=== PATIENT | female | born 1965 | race Caucasian/White ===

== ENCOUNTER 2017-07-21 18:15 | Emergency (ER) | payer SELFPAY ==
[~2017-07-21] VITALS: Ht 154.9 cm; Wt 47.7 kg
[2017-07-21 18:18] VITALS: BP 138/72; PULSE 129; RESP 18; TEMP 98.5; O2SAT 99
--- NOTE | 2017-07-21 19:07 | RADRPT ---
EXAM DATE/TIME: 07/21/2017 18:33 [place] COMPARISON: No previous studies available for comparison. INDICATIONS : Pain, swelling, redness and abrasion left great toe. Kicked a concrete sidewalk. MEDICAL HISTORY : None. SURGICAL HISTORY : None. ENCOUNTER: Initial ACUITY: 1 week PAIN SCORE: 9/10 LOCATION: Left Great toe FINDINGS: Examination of the first digit of the left foot demonstrates no evidence of fracture or dislocation. No radiopaque foreign bodies are seen. The soft tissues are intact. CONCLUSION: 1. No acute bony abnormality. Mild hallux valgus. Kulwinder Kennedy MD on July 21, 2017 at 19:02 Board Certified Radiologist. This report was verified electronically.
[2017-07-21] MEDS ORDERED: BACT800T5 PO (23:23)
[2017-07-21] MEDS ORDERED: IBUP-232 PO (23:23)
--- NOTE | 2017-07-21 23:23 | PD ---
HPI Chief Complaint: Skin Problem Time Seen by Provider: 23:20 Travel History International Travel<30 days: No Contact w/Intl Traveler<30days: No Traveled to known affect area: No History of Present Illness HPI 52-year-old female patient presents to the ER today, states that she stubbed her toe on the stairs several days ago, and states that the toe has a scratch on and it is hurting more more. She denies any other issues or injuries. She denies any fevers. Modifying Factors: None Associated Signs & Symptoms: Left first toe injury, increased pain Risk Factors: None PFSH Past Medical History Diabetes: Yes (DIET CONTROLLED) Neurologic: Yes (HEADACHES) Immunizations Current: Yes ?: Not Past Surgical History Abdominal Surgery: Yes (APPENDECTOMY) Appendectomy: Yes Body Medical Devices: METAL PLATE IN JAW Oral Surgery: Yes (TUMORE REMOVED FROM JAW, JAW BROKEN METAL PLACED) Other Surgery: Yes (benign tumor jaw) Social History Alcohol Use: No Tobacco Use: No Substance Use: No Allergies-Medications (Allergen,Severity, Reaction): Coded Allergies: No Known Allergies (Unverified , 09/26/15) Reported Meds & Prescriptions Reported Meds & Active Scripts Active No Active Prescriptions or Reported Medications Review of Systems Except as stated in HPI: all other systems reviewed are Neg Physical Exam Narrative GENERAL: Well-nourished, well-developed middle-age female patient in mild distress. Awake and oriented 3. SKIN: Focused skin assessment warm/dry. HEAD: Normocephalic. EYES: No scleral icterus. No injection or drainage. NECK: Supple, trachea midline. No JVD or lymphadenopathy. Left foot: There is a small abrasion to the medial part of the first digit with no involvement of the nailbed or underlying fluctuance. There is surrounding erythema and tenderness. Data Data Last Documented VS Vital Signs Date Time Temp Pulse Resp B/P (MAP) Pulse Ox O2 Delivery O2 Flow Rate FiO2 07/21/17 18:18 98.5 129 18 138/72 (94) 99 Orders Orders Toe (Min 2vws) (07/21/17 ) [facility] Medical Decision Making Medical Screen Exam Complete: Yes Emergency Medical Condition: Yes Medical Record Reviewed: Yes Differential Diagnosis Toe cellulitis, rule out fracture Narrative Course X-ray shows no underlying fracture. At this point, patient is put on p.o. antibiotics. Return for any signs of worsening in pain, worsening infection, and as needed. The plan has been discussed with the patient and she states understanding. Diagnosis Primary Impression: Cellulitis, toe Med/Other Pt SpecificInfo: Prescription(s) given Scripts Ibuprofen (Ibuprofen) 600 Mg Tab 600 MG PO Q6H Y for Pain/Inflammation, #20 TAB 0 Refills Prov: Kenton Santoyo MD 07/21/17 Sulfamethoxazole-Trimethoprim (Bactrim DS) 800-160 Mg Tab 1 TAB PO BID for Infection, #14 TAB 0 Refills Prov: Kenton Santoyo MD 07/21/17 Disposition: 01 DISCHARGE HOME Condition: Stable Kenton Sanotyo MD Jul 21, 2017 23:23
[2017-07-21] MEDS ORDERED: SULFAMETHOXAZOLE-TRIMETHOPRIM DS 800-160 MG TAB PO ONE (23:30)
[2017-07-21] MEDS ORDERED: IBUPROFEN 600 MG TAB PO ONE (23:30)
== END 2017-07-22 00:06 | disposition home or self-care (01) ==
LOC: NEPD 18:15
DX: L03.032 Cellulitis of left toe (principal); S90.412A Abrasion, left great toe, initial encounter; W22.09XA Striking against other stationary object, initial encounter
CPT/HCPCS: 73660; 99283

== ENCOUNTER 2017-08-04 14:04 | Emergency (ER) | payer SELFPAY ==
[~2017-08-04] VITALS: Ht 154.9 cm; Wt 47.7 kg
[~2017-08-04 14:04] MED LIST: BACT800T5 PO; IBUP-232 PO
[2017-08-04 14:31] VITALS: BP 129/85; PULSE 99; RESP 18; TEMP 98.8; O2SAT 99
[2017-08-04] MEDS ORDERED: CEPH-460 PO (16:58)
[2017-08-04] MEDS ORDERED: CLIN300C5 PO (16:58)
--- NOTE | 2017-08-04 17:07 | PD ---
HPI Chief Complaint: Skin Problem Time Seen by Provider: 16:45 Travel History International Travel<30 days: No Contact w/Intl Traveler<30days: No Traveled to known affect area: No History of Present Illness HPI 52-year-old female presents to the emergency room for evaluation of small abscess to her right leg that started a few days ago. She believes she may have gotten bit by something but does not remember seeing anything actually bite her. Patient was just treated for an abscess to her left great toe 2 weeks ago with Bactrim. States she finished her antibiotics and the lesion still appeared. It is slightly draining. She denies fever or chills but reports occasional nausea and vomiting. Patient states she also has history of frequent UTIs, about every other month. She believes she has a urinary tract infection at this time. Denies any vaginal symptoms. Denies any flank pain. PFSH Past Medical History Diabetes: Yes (DIET CONTROLLED) Neurologic: Yes (HEADACHES) Immunizations Current: Yes Past Surgical History Abdominal Surgery: Yes (APPENDECTOMY) Appendectomy: Yes Body Medical Devices: METAL PLATE IN JAW Oral Surgery: Yes (TUMORE REMOVED FROM JAW, JAW BROKEN METAL PLACED) Other Surgery: Yes (benign tumor jaw) Social History Alcohol Use: Yes Tobacco Use: Yes Substance Use: No Allergies-Medications (Allergen,Severity, Reaction): Coded Allergies: No Known Allergies (Unverified Adverse Reaction, Unknown, 08/04/17) Reported Meds & Prescriptions Reported Meds & Active Scripts Active Ibuprofen 600 Mg Tab 600 Mg PO Q6H PRN Review of Systems Except as stated in HPI: all other systems reviewed are Neg Physical Exam Narrative GENERAL: Well-nourished, well-developed female no acute distress. Afebrile. Ambulatory. SKIN: No rashes, ecchymoses. Warm and dry. There is an indurated area in the right posterior knee which measures about 1 cm in diameter. It is fluctuant but there is no pointing or drainage. There is a zone of inflammation around it but no lymphangitis. HEAD: Normocephalic. EYES: No scleral icterus. No injection or drainage. NECK: Supple, trachea midline. No JVD or lymphadenopathy. CARDIOVASCULAR: Regular rate and rhythm without murmurs, gallops, or rubs. RESPIRATORY: Breath sounds equal bilaterally. No accessory muscle use. MUSCULOSKELETAL: No cyanosis, or edema. Full range of motion of bilateral lower extremities. Data Data Last Documented VS Vital Signs Date Time Temp Pulse Resp B/P (MAP) Pulse Ox O2 Delivery O2 Flow Rate FiO2 08/04/17 14:31 98.8 99 18 129/85 (100) 99 [facility] Medical Decision Making Medical Screen Exam Complete: Yes Emergency Medical Condition: Yes Medical Record Reviewed: Yes Differential Diagnosis Abscess, cellulitis, contusion, UTI, dysuria Narrative Course 52-year-old female presents to the emergency room for evaluation of abscess/ lesion to the right posterior knee. States it started a few days ago. Patient was just on Bactrim 2 weeks ago for an abscess to her left great toe. She denies any systemic signs of infection. Physical exam reveals a 1 cm area of erythema with spontaneous drainage. No fluctuance. No significant induration. No indication for incision and drainage. Patient also complains of UTI symptoms. States she has frequent UTIs and knows that she has one today. She will be treated empirically with clindamycin and Keflex. Told to follow-up with her primary care physician for outpatient referral to urologist given frequent UTIs. She understands and agrees to plan. Diagnosis Primary Impression: Abscess Additional Impression: UTI symptoms Referrals: Primary Care Physician Additional Instructions: Rest and drink plenty of fluids. Take clindamycin as directed, until gone. Take Keflex as directed, until gone. Follow up with a primary care physician. Return to emergency room for worsening symptoms, as discussed. Med/Other Pt SpecificInfo: Prescription(s) given Scripts Clindamycin (Clindamycin) 300 Mg Cap 300 MG PO Q8HR for Infection for 7 Days, CAP 0 Refills Prov: Adan Taveras MD 08/04/17 Cephalexin (Keflex) 500 Mg Cap 500 MG PO Q12H for Infection for 7 Days, #14 CAP 0 Refills Prov: Adan Tvaeras MD 08/04/17 Disposition: 01 DISCHARGE HOME Condition: Stable Hazel Atkinson Aug 04, 2017 17:06
== END 2017-08-04 17:18 | disposition home or self-care (01) ==
LOC: NEPK 14:04
DX: L02.415 Cutaneous abscess of right lower limb (principal); E11.9 Type 2 diabetes mellitus without complications; Z87.440 Personal history of urinary (tract) infections; Z72.0 Tobacco use
CPT/HCPCS: 99283